=== PATIENT | female | born 1955 | race Caucasian/White ===

== ENCOUNTER 2016-07-16 16:44 | Emergency (ER) | payer BC ==
[~2016-07-16] VITALS: Ht 162.6 cm; Wt 75.6 kg
[2016-07-16 16:46] VITALS: Ht 162.6 cm; Wt 75.6 kg
[2016-07-16] MEDS ORDERED: ONDANSETRON INJ 2 MG/ML 2 ML VIAL IV STA (17:01)
[2016-07-16] MEDS ORDERED: MULT-506 PO (17:08)
[2016-07-16] MEDS ORDERED: BEE POLLEN PO (17:14)
[2016-07-16] MEDS ORDERED: SODIUM CHLORIDE 0.9% 1000ML 1,000 ML IV ONE (17:15)
[2016-07-16 17:48] LABS: BASO % 0.2 %; BASO ABS # 0.02 K/uL (0-0.2); COMPLETE YES; EOS % 2.1 %; HEMATOCRIT 42.2 % (37-47); IG% 0.3 %; LYMPH % 12.4 %; LYMPH ABS # 1.22 K/uL (1.2-3.4); MEAN CELL VOLUME 84.7 fL (80-100); MEAN CORPUSCULAR HEMOGLOBIN 28.3 pg (25-34); MEAN CORPUSCULAR HGB CONC 33.4 g/dl (32-36); MEAN PLATELET VOLUME 10.2 fL (7.4-10.4); MONO % 6.3 %; NEUT % 78.7 %; PLATELET COUNT 208 K/uL (130-400); RED BLOOD COUNT 4.98 M/uL (4.2-5.4); WHITE BLOOD COUNT 9.82 K/uL (4.8-10.8)
--- NOTE | 2016-07-16 17:56 | DIAGNOSTIC IMAGING REPORT ---
CT HEAD WITHOUT CONTRAST (CT) CLINICAL HISTORY: Visual disturbance COMPARISON STUDY: No previous studies for comparison. TECHNIQUE: Axial CT of the brain is performed from the vertex to the skull base. IV contrast was not administered for this examination. CT DOSE: 537.48 mGy.cm FINDINGS: No intra or extra-axial mass lesions are visualized. There is no CT evidence of acute cortical infarction. There is no evidence of midline shift. There is no acute hemorrhage. No calvarial fractures are visualized. There is no evidence of pathologic ventricular dilatation. There is no evidence of acute sinusitis IMPRESSION: No acute intracranial findings Electronically signed by: Dax Collazo M.D. 07/16/2016 5:54 PM Dictated Date/Time: 07/16/2016 5:53 PM
[2016-07-16 18:03] LABS: PARTIAL THROMBOPLASTIN RATIO 1.1; PROTHROMBIN TIME (PATIENT) 10.7 SECONDS (9.0-12.0)
[2016-07-16] MEDS ORDERED: LORAZEPAM 2 MG/ML 1 ML VIAL IV STA (18:14)
[2016-07-16 18:15] LABS: ALT/SGPT 29 U/L (12-78); BLOOD UREA NITROGEN 18 mg/dl (7-18); BUN/CREATININE RATIO 17.9 (10-20); C-REACTIVE PROTEIN < 0.29 mg/dl (0-0.29); CALCIUM 9.4 mg/dl (8.5-10.1); CARBON DIOXIDE 27 mmol/L (21-32); CHLORIDE 101 mmol/L (98-107); CREATININE 0.98 mg/dl (0.60-1.20); GLUCOSE 119 mg/dl (70-99); POTASSIUM 3.9 mmol/L (3.5-5.1); SODIUM 139 mmol/L (136-145)
[2016-07-16 18:26] LABS: ALB/GLOB RATIO 1.2 (0.9-2); ALKALINE PHOSPHATASE 81 U/L (45-117); AST/SGOT 27 U/L (15-37); CKMB/CK RATIO 1.1 (0-3.0)
[2016-07-16 18:38] LABS: LYME DISEASE AB IGG NEG (NEG); LYME DISEASE AB IGM NEG (NEG)
--- NOTE | 2016-07-16 20:16 | DIAGNOSTIC IMAGING REPORT ---
MR ANGIOGRAPHY OF THE [place] NO CONTRAST CLINICAL HISTORY: Visual disturbance COMPARISON STUDY: Noncontrast head CT dated 07/15/2016 A 3-D [id number] MR angiographic sequence of the [place] was performed. Both the source and projection images were reviewed. There is no evidence of major intracranial branch occlusion. There is no evidence of intracranial stenosis. There are no lesions suspicious for aneurysm. IMPRESSION: Unremarkable MR angiography of the [place]. Electronically signed by: Dax Collazo M.D. 07/16/2016 8:15 PM Dictated Date/Time: 07/16/2016 8:13 PM
[2016-07-16] MEDS ORDERED: GADAVIST IV PRN (20:30)
--- NOTE | 2016-07-16 20:35 | DIAGNOSTIC IMAGING REPORT ---
MRI OF THE BRAIN WITHOUT AND WITH IV CONTRAST CLINICAL HISTORY: Visual disturbance COMPARISON STUDY: Head CT dated 07/16/2016 TECHNIQUE: MRI of the brain was performed from the vertex to the skull base utilizing various T1 and T2 weighted sequences. Following the IV administration of 8 mL of Gadavist contrast, additional enhanced images were obtained. FINDINGS: Sagittal T1, axial diffusion, proton density and T2 weighted axial, coronal FLAIR, and pre and post axial T1-weighted images were acquired. These were supplemented with post gadolinium coronal T1 weighted images. No intra or extra-axial mass lesions are visualized. Axial diffusion-weighted images reveal no evidence of acute or subacute infarction. There is no evidence of ventricular dilatation. Proton density T2-weighted and FLAIR images reveal a focus of increased T2 signal adjacent to the anterior horn the right lateral ventricle. This is likely a small vessel basis. There are no abnormal flow voids. There is no evidence of pathologic enhancement. There is a left maxillary sinus retention cyst. IMPRESSION: No acute intracranial findings. No evidence of intracranial mass. No evidence of acute or subacute infarction. Electronically signed by: Dax Collazo M.D. 07/16/2016 8:34 PM Dictated Date/Time: 07/16/2016 8:31 PM
[2016-07-16 20:47] LABS: MANUAL MICROSCOPIC REQUIRED? NO; REVIEW REQ? NO; URINE APPEARANCE CLEAR (CLEAR); URINE BILIRUBIN NEG (NEG); URINE COLOR YELLOW; URINE EPITHELIAL CELL AUTO 0-5 /lpf (0-5); URINE NITRITE NEG (NEG); UROBILINOGEN NEG (NEG); ZZUR CULT IF INDIC CLEAN CATCH NO
[2016-07-16] MEDS ORDERED: ONDANSETRON HOME PACK 4MG OD TAB PO ONE (22:30)
[2016-07-16 22:44] VITALS: BP 92/65; PULSE 63; TEMP 36.9; O2SAT 96
--- NOTE | 2016-07-17 01:13 | EMERGENCY ROOM VISIT NOTE ---
History First contact with patient: 16:52 Chief Complaint: EYE ASSESSMENT Stated Complaint: PROBLEM FOCUSING LEFT EYE History of Present Illness The patient is a 60 year old female who presents to the Emergency Room with complaints of difficulty focusing her left eye. The patient is normally very healthy, and is without chronic medical disease. She is not on chronic medication. The patient states that she went to a spinning class this morning, completed the class without any difficulty, and got in her car to come home. She stated that in the car she began having difficulty with her left ee going in and out of focus. At times she would have [id number] double vision. The patient did not have visual acuity changes, and states that when she closes one eye the other eye vision is fine. She got home, took out her contact lenses, and put her glasses on. This did not help the symptoms, as the patient again developing nausea. Her initial symptoms started about 4 hours prior to arrival here in the ER. The patient has not had recent illness, fever, or chills. She is not having difficulty with speech or movement/strength of her arms or legs. She is without headache, chest pain, chest tightness, or shortness of breath. Her symptoms appear to be limited to the visual disturbance. She has never had an episode like this in the past. She rates her current discomfort a 4/10, which again is from the nausea and not from pain. Review of Systems More than 10 systems were reviewed and otherwise negative with the exception of history of present illness. Past Medical/Surgical History No chronic medical disease Family History No pertinent family history Social History Smoking Status: Never Smoker Housing Status: lives with family Current/Historical Medications Scheduled Multivitamin (Multivitamin), 2 TABS PO DAILY [Bee Pollen], 1 TSP PO DAILY Allergies Coded Allergies: No Known Allergies (Unverified , 07/16/16) Physical Exam Vital Signs Date Time Temp Pulse Resp B/P Pulse Ox O2 Delivery O2 Flow Rate FiO2 07/16/16 22:44 36.9 63 14 92/65 96 07/16/16 22:35 63 14 92/65 96 Room Air 07/16/16 20:39 75 110/68 94 Room Air 07/16/16 16:46 36.9 79 19 154/92 99 Room Air Right Eye Acuity: 20/25 Left Eye Acuity: 20/25 Pain Rating (0-10): 0 Physical Exam VITALS: Vitals are noted on the nurse's note and reviewed by myself. Vital signs stable. Visual acuity as above GENERAL: Well-developed, well-nourished, very pleasant white female, who is in no acute distress and resting comfortably. Patient is cooperative with the examination. HEAD: Normocephalic atraumatic. EARS: External ear normal. External auditory canals clear, tympanic membranes pearly [place] without erythema or effusion bilaterally. EYES: Pupils equal round and reactive to light and accommodation. Conjunctivae without injection, sclerae without icterus. Extraocular movements intact. Puff tonometer reading shows a pressure of 12 in both eyes. Slit lamp examination does not show evidence of foreign body or corneal abrasion. No obvious findings seen in the posterior globe. No [place] pupil. NOSE: Patent, turbinates without inflammation or discharge. MOUTH: Mucous membranes moist. Tonsils are not enlarged. Pharynx without erythema, blood, or exudate. Uvula midline. Airway patent. NECK: Supple without nuchal rigidity. No lymphadenopathy. No thyromegaly. Cervical spine is nontender. HEART: Regular rate and rhythm without murmurs gallops or rubs. LUNGS: Clear to auscultation bilaterally without wheezes, rales or rhonchi. No retractions or accessory muscle use. ABDOMEN: Positive normal bowel sounds x 4. Soft, nontender, without masses or organomegaly. No guarding or rebound tenderness. MUSCULOSKELETAL: No muscle atrophy, erythema, or edema noted. Full range of motion without joint tenderness in all extremities. No tenderness to palpation. Normal gait. Strength 5/5 throughout. NEURO: Patient was alert and oriented to person place and time. CN II through XII grossly intact. Deep tendon reflexes 2+ throughout. No focal neurological deficits SKIN: The skin was without rashes, erythema, edema, or bruising. Capillary reflex less than 2 seconds. Medical Decision & Procedures ER Provider Diagnostic Interpretation: CT HEAD WITHOUT CONTRAST (CT) CLINICAL HISTORY: Visual disturbance COMPARISON STUDY: No previous studies for comparison. TECHNIQUE: Axial CT of the brain is performed from the vertex to the skull base. IV contrast was not administered for this examination. CT DOSE: 537.48 mGy.cm FINDINGS: No intra or extra-axial mass lesions are visualized. There is no CT evidence of acute cortical infarction. There is no evidence of midline shift. There is no acute hemorrhage. No calvarial fractures are visualized. There is no evidence of pathologic ventricular dilatation. There is no evidence of acute sinusitis IMPRESSION: No acute intracranial findings MRI OF THE BRAIN WITHOUT AND WITH IV CONTRAST CLINICAL HISTORY: Visual disturbance COMPARISON STUDY: Head CT dated 07/16/2016 TECHNIQUE: MRI of the brain was performed from the vertex to the skull base utilizing various T1 and T2 weighted sequences. Following the IV administration of 8 mL of Gadavist contrast, additional enhanced images were obtained. FINDINGS: Sagittal T1, axial diffusion, proton density and T2 weighted axial, coronal FLAIR, and pre and post axial T1-weighted images were acquired. These were supplemented with post gadolinium coronal T1 weighted images. No intra or extra-axial mass lesions are visualized. Axial diffusion-weighted images reveal no evidence of acute or subacute infarction. There is no evidence of ventricular dilatation. Proton density T2-weighted and FLAIR images reveal a focus of increased T2 signal adjacent to the anterior horn the right lateral ventricle. This is likely a small vessel basis. There are no abnormal flow voids. There is no evidence of pathologic enhancement. There is a left maxillary sinus retention cyst. IMPRESSION: No acute intracranial findings. No evidence of intracranial mass. No evidence of acute or subacute infarction. MR ANGIOGRAPHY OF THE [place] NO CONTRAST CLINICAL HISTORY: Visual disturbance COMPARISON STUDY: Noncontrast head CT dated 07/15/2016 A 3-D [id number] MR angiographic sequence of the [place] was performed. Both the source and projection images were reviewed. There is no evidence of major intracranial branch occlusion. There is no evidence of intracranial stenosis. There are no lesions suspicious for aneurysm. IMPRESSION: Unremarkable MR angiography of the [place]. Laboratory Results 07/16/16 17:30 Red Blood Count 4.98, Mean Corpuscular Volume 84.7, Mean Corpuscular Hemoglobin 28.3, Mean Corpuscular Hemoglobin Concent 33.4, Mean Platelet Volume 10.2, Neutrophils (%) (Auto) 78.7, Lymphocytes (%) (Auto) 12.4, Monocytes (%) (Auto) 6.3, Eosinophils (%) (Auto) 2.1, Basophils (%) (Auto) 0.2, Neutrophils # (Auto) 7.72, Lymphocytes # (Auto) 1.22, Monocytes # (Auto) 0.62, Eosinophils # (Auto) 0.21, Basophils # (Auto) 0.02 07/16/16 17:30 Test 07/16/16 17:30 07/16/16 17:39 07/16/16 20:20 White Blood Count 9.82 K/uL (4.8-10.8) Red Blood Count 4.98 M/uL (4.2-5.4) Hemoglobin 14.1 g/dL (12.0-16.0) Hematocrit 42.2 % (37-47) Mean Corpuscular Volume 84.7 fL (80-100) Mean Corpuscular Hemoglobin 28.3 pg (25-34) Mean Corpuscular Hemoglobin Concent 33.4 g/dl (32-36) Platelet Count 208 K/uL (130-400) Mean Platelet Volume 10.2 fL (7.4-10.4) Neutrophils (%) (Auto) 78.7 % Lymphocytes (%) (Auto) 12.4 % Monocytes (%) (Auto) 6.3 % Eosinophils (%) (Auto) 2.1 % Basophils (%) (Auto) 0.2 % Neutrophils # (Auto) 7.72 K/uL (1.4-6.5) Lymphocytes # (Auto) 1.22 K/uL (1.2-3.4) Monocytes # (Auto) 0.62 K/uL (0.11-0.59) Eosinophils # (Auto) 0.21 K/uL (0-0.5) Basophils # (Auto) 0.02 K/uL (0-0.2) RDW Standard Deviation 40.1 fL (36.4-46.3) RDW Coefficient of Variation 13.0 % (11.5-14.5) Immature Granulocyte % (Auto) 0.3 % Immature Granulocyte # (Auto) 0.03 K/uL (0.00-0.02) Erythrocyte Sedimentation Rate 14 mm/hr (0-21) Prothrombin Time 10.7 SECONDS (9.0-12.0) Prothromb Time International Ratio 1.0 (0.9-1.1) Activated Partial Thromboplast Time 27.5 SECONDS (21.0-31.0) Partial Thromboplastin Ratio 1.1 Anion Gap 11.0 mmol/L (3-11) Est Creatinine Clear Calc Drug Dose 60.0 ml/min Estimated GFR () 72.2 Estimated GFR (Non- 62.3 BUN/Creatinine Ratio 17.9 (10-20) Calcium Level 9.4 mg/dl (8.5-10.1) Total Bilirubin 0.4 mg/dl (0.2-1) Aspartate Amino Transf (AST/SGOT) 27 U/L (15-37) Alanine Aminotransferase (ALT/SGPT) 29 U/L (12-78) Alkaline Phosphatase 81 U/L (45-117) Total Creatine Kinase 142 U/L (26-192) Creatine Kinase MB 1.6 ng/ml (0.5-3.6) Creatine Kinase MB Ratio 1.1 (0-3.0) C-Reactive Protein < 0.29 mg/dl (0-0.29) Total Protein 7.4 gm/dl (6.4-8.2) Albumin 4.1 gm/dl (3.4-5.0) Globulin 3.3 gm/dl (2.5-4.0) Albumin/Globulin Ratio 1.2 (0.9-2) Thyroid Stimulating Hormone (TSH) 1.420 uIu/ml (0.300-4.500) Lyme Disease IgG Antibody NEG (NEG) Lyme Disease IgM Antibody NEG (NEG) Bedside Troponin I 0.000 ng/ml (0-0.045) Urine Color YELLOW Urine Appearance CLEAR (CLEAR) Urine pH 6.0 (4.5-7.5) Urine Specific [place] 1.010 (1.000-1.030) Urine Protein NEG (NEG) Urine Glucose (UA) NEG (NEG) Urine Ketones NEG (NEG) Urine Occult Blood NEG (NEG) Urine Nitrite NEG (NEG) Urine Bilirubin NEG (NEG) Urine Urobilinogen NEG (NEG) Urine Leukocyte Esterase TRACE (NEG) Urine WBC (Auto) 1-5 /hpf (0-5) Urine RBC (Auto) 0-4 /hpf (0-4) Urine Hyaline Casts (Auto) 0 /lpf (0-5) Urine Epithelial Cells (Auto) 0-5 /lpf (0-5) Urine Bacteria (Auto) NEG (NEG) Medications Administered Medications (Trade) Dose Ordered Sig/Prateek Route Start Time Stop Time Status Last Admin Dose Admin Ondansetron HCl 4 mg 4 mg NOW STAT IV 07/16/16 17:01 07/16/16 17:05 DC 07/16/16 17:39 4 MG Sodium Chloride (Nss 1000ml) 1,000 ml @ 999 mls/hr Q1H1M ONCE IV 07/16/16 17:15 07/16/16 18:15 DC 07/16/16 17:39 999 MLS/HR Lorazepam (Ativan Inj) 1 mg NOW STAT IV 07/16/16 18:14 07/16/16 18:19 DC 07/16/16 19:29 1 MG ED Course Physical exam and history were performed. Nursing notes and EMR were reviewed. Patient appears to have difficulty with the vision of her left eye. She does describe this as not being able to focus with the left eye. She does have intermittent double vision. She really is without other symptoms and then some nausea. Her story is quite concerning as the patient is quite healthy and does not regularly come to the emergency department. IV access was established and labs were obtained. The patient was hydrated with normal saline and given IV Zofran for the nausea. CT scan of the head was performed. The case was discussed with my attending physician, Dr. Mcnally, who remained closely involved in patient care and decision making. The patient's blood work is as above and was reviewed. She does not have a significantly elevated white blood cell count, anemia, bandemia, or gross electrolyte imbalance. Urine is without signs of infection. Lyme disease is negative. Sedimentation rate and CRP are not elevated. The patient CT scan of the head does not show evidence of bleed, mass, or other acute findings. I continue to reassess the patient several times throughout her stay. Her nausea was improved with the Zofran, and she did not have any new pain. At this time I continue to remain very concerned about the patient, as her symptoms could represent an optic nerve or cerebellar pathology. Out of concern for this I did perform MRI and MRA of the head. MRI and MRA studies are also without acute findings to describe the patient's symptoms. I discussed the case with the on-call neurologist, Dr. Lebron, and we did review the findings and presentation. Overall the patient is felt to be stable for discharge home. Her symptoms do not appear to represent an acute life-threatening or ischemic process at this time. This could be an atypical migraine. The patient's symptoms did improve while under our care, and the patient reports almost 90% improvement without significant intervention on my behalf. The patient does live close to the facility, and she does live with her . Her is certainly willing to monitor her at home. The patient and were asked to return to the emergency Department immediately should the patient develop any evolving symptoms. They are otherwise to follow with their primary care physician on Monday for further care. The patient and family were quite pleased with this and voiced understanding. The patient's discomfort was rated 0/10 at the time of departure. The chart was completed utilizing [employer] Speech Voice Recognition Software. Grammatical errors, random word insertions, pronoun errors, and incomplete sentences are an occasional consequence of this system due to software limitations, ambient noise, and hardware issues. Any formal questions or concerns about the content, text, or information contained within the body of this dictation should be directly addressed to the provider for clarification. . Medical Decision The differential diagnosis includes, but is not limited to: acute intracranial bleed, meningitis, encephalitis, mass or mass effect, sinusitis, infection, tumor, headache, temporal arteritis and carbon monoxide exposure, and migraine. Impression Primary Impression: Visual disturbance Additional Impression: Nausea Departure Information Dispostion Home / Self-Care Condition GOOD Forms HOME CARE DOCUMENTATION FORM, IMPORTANT VISIT INFORMATION Patient Instructions My [facility] Additional Instructions You were seen and evaluated today on an emergency basis only. This is not a substitute for, or an effort to provide, complete comprehensive medical care. It is not possible to recognize and treat all injuries or illnesses in a single emergency department visit. For this reason it is recommended that you followup with your primary care physician's office on Monday for ongoing care and evaluation. You may be able to contact [facility] in the morning or schedule an appointment online. Thankfully your blood work, CT scan, and MRI/MRA of the head do not show acute findings. If your symptoms worsen or of falls in a way that you are not comfortable please return to the emergency Department immediately. Zofran (homepack) 1 tablet every 6 hrs as needed for nausea. You are welcome to return to the emergency department anytime with new, worsening, or concerning symptoms. Problem Qualifiers
== END 2016-07-16 22:44 | disposition home or self-care (01) ==
LOC: C.EDB 16:45 → C.EDA 22:44
DX: H53.9 Unspecified visual disturbance (principal); R11.0 Nausea

== ENCOUNTER → 2017-04-17 | Outpatient (CLI) | payer BC ==
[~2017-04-17] MED LIST: BEE POLLEN PO; MULT-506 PO
--- NOTE | 2017-04-18 15:21 | MAMMOGRAPHY REPORT ---
BILATERAL DIGITAL SCREENING MAMMOGRAM TOMOSYNTHESIS WITH CAD: 04/17/2017 CLINICAL HISTORY: Routine screening. Patient has no complaints. TECHNIQUE: Breast tomosynthesis in addition to standard 2D mammography was performed. Current study was also evaluated with a Computer Aided Detection (CAD) system. COMPARISON: Comparison is made to exams dated: 04/13/2016 mammogram, 02/24/2015 mammogram, 12/04/2013 m ammogram, 08/06/2012 mammogram, 07/13/2011 mammogram, and 05/04/2010 mammogram - [facility] nter. BREAST COMPOSITION: There are scattered areas of fibroglandular density in both breasts. FINDINGS: The parenchymal pattern is unchanged. No developing mass, architectural distortion or clus ter of suspicious microcalcifications is seen in either breast. IMPRESSION: ACR BI-RADS CATEGORY 2: BENIGN There is no mammographic evidence of malignancy. A 1 year screening mammogram is recommended. The pa tient will receive written notification of the results. Approximately 10% of breast cancers are not detected with mammography. A negative mammographic report should not delay biopsy if a clinically suggestive mass is present. Ivon Miranda M.D. ay/:04/18/2017 14:35:35 Sustainability Executive Director: Tyesha Rhodes, [facility] letter sent: Normal 1/2 BI-RADS Code: ACR BI-RADS Category 2: Benign
== END | disposition home or self-care (01) ==
LOC: C.MAMM 14:11
PROVIDERS: ATTEND Nurse Practitioner Adult Health
DX: Z12.31 Encounter for screening mammogram for malignant neoplasm of breast (principal)